=== PATIENT | female | born 1960 | race Caucasian/White ===

== ENCOUNTER 2022-08-10 10:04 | Emergency (ER) | payer OTHER ==
[~2022-08-10] VITALS: Ht 160 cm; Wt 68.2 kg
[2022-08-10 10:16] VITALS: BP 141/83
[2022-08-10] MEDS ORDERED: LIDOcaine 1% W/epiNEPHrine 1:100,000 20ml vial IJ ONE (11:15)
[2022-08-10] MEDS ORDERED: GRIS500T7 PO (12:14)
== END 2022-08-10 12:24 | disposition home or self-care (01) ==
LOC: ER 10:05
DX: B35.0 Tinea barbae and tinea capitis (principal); F17.200 Nicotine dependence, unspecified, uncomplicated; F12.90 Cannabis use, unspecified, uncomplicated; Z90.49 Acquired absence of other specified parts of digestive tract
CPT/HCPCS: 99283; J3490; A6449